=== PATIENT | female | born 1955 | race American Indian/Alaskan Native ===

== ENCOUNTER 2016-09-08 09:51 | Outpatient (CLI) | payer MEDICARE ==
--- NOTE | 2016-09-08 15:39 | XRay Report ---
Right foot 3 views: History: Foot pain. Findings: Generalized osteopenia. No periosteal reaction, lytic lesion or soft tissue calcification. Normal articular surfaces. Extensive calcification of posterior tibial vessels. Impression: Findings as detailed above.
== END 2016-09-08 09:52 | disposition home or self-care (01) ==
LOC: SPVIMAG 09:51
DX: M85.871 Other specified disorders of bone density and structure, right ankle and foot (principal); M25.571 Pain in right ankle and joints of right foot

== ENCOUNTER 2017-04-30 15:05 | Outpatient (CLI) | payer MEDICARE ==
--- NOTE | 2017-04-30 16:05 | XRay Report ---
Right wrist: Swelling. There is mild swelling predominantly on the dorsal side of the wrist. There is marked mural calcification of the radial and ulnar arteries. The bony structures appear intact as do the joints. There is good alignment. Impressions: Nonspecific swelling. Vascular calcifications suggesting metabolic disorder. No bone or joint findings.
== END 2017-04-30 15:06 | disposition home or self-care (01) ==
LOC: SPVIMAG 15:05
DX: R60.0 Localized edema (principal)